=== PATIENT | male | born 2005 ===

== ENCOUNTER 2024-10-03 16:51 | Emergency (ER) | payer BC, MEDICAID, OTHER | END 2024-10-03 19:15 | disposition home or self-care (01) | LOC: VM.ED 16:51 | DX: S13.4XXA Sprain of ligaments of cervical spine, initial encounter (principal); S50.01XA Contusion of right elbow, initial encounter; F17.210 Nicotine dependence, cigarettes, uncomplicated; V48.0XXA Car driver injured in noncollision transport accident in nontraffic accident, initial encounter; Y93.89 Activity, other specified | CPT/HCPCS: 72125; 73030-RT; 73080-RT; 99282; 99284 ==